=== PATIENT | male | born 1970 | race Caucasian/White ===

== ENCOUNTER 2018-08-08 21:04 | Emergency (ER) | payer SELFPAY ==
[2018-08-08 21:28] LABS: MEAN CORPUSCULAR HEMOGLOBIN 28.5 pg (28.0-34.0)
[2018-08-08 21:29] LABS: BASOPHILS % 0.4 (0.0-1.5); EOSINOPHILS % 1.3 % (0.0-6.8); MONOCYTES % 4.4 % (0.0-11.0); NEUTROPHILS # 11.5 # k/uL (1.4-7.7)
--- NOTE | 2018-08-08 21:45 | ED Physician Documentation ---
General Adult - HISTORIAN Historian: patient - HPI Stated Complaint: Not feeling well Chief Complaint: General Adult Onset: minutes Further Comments: yes (48 year old male patient presents with complaints of a 45 minute episode of chills and body aches.) - ROS CONST: chills EYES/ENT: none CVS/RESP: none GI/: none MS/SKIN/LYMPH: none NEURO/PSYCH: denies: headache, fainting, dizziness, tingling, numbness, difficulty walking, difficulty with speech, anxiety, depression, other - PAST HX Past History: none Other History: none Allergies/Adverse Reactions: Allergies Allergy/AdvReac Type Severity Reaction Status Date / Time No Known Drug Allergies Allergy Verified 05/19/15 06:47 Home Medications: Ambulatory Orders Medication Instructions Recorded Penicillin V Potassium [Pen V K] 500 mg PO QID #40 tablet 05/19/15 - SOCIAL HX Smoking History: non-smoker - FAMILY HX Family History: No - VITAL SIGNS Vital Signs: Vital Signs Temp Pulse Resp BP Pulse Ox 100.1 F H 110 H 18 143/86 95 08/08/18 21:24 08/08/18 21:24 08/08/18 21:24 08/08/18 21:24 08/08/18 21:24 - REVIEWED ASSESSMENTS Nursing Assessment Reviewed: Yes Vitals Reviewed: Yes Progress - Progress Progress: Lab, CT and xrays reviewed with patient. Patient denies any chills or body aches at present. Discussed treatment options. Will discharge with written prescription for antibiotic to start if symptoms become worse. Encouraged patient to establish PCP and have wellness check. ED Results Lab/Radiology - Lab Results Lab Results: Lab Results 08/08/18 21:16 WBC 12.90 K/ul H K/ul (4.00-12.00) RBC 5.12 M/ul M/ul (3.90-5.20) Hgb 14.6 g/dL g/dL (12.0-18.0) Hct 44.9 % % (37.0-53.0) MCV 88.0 fl fl (80.0-100.0) MCH 28.5 pg pg (28.0-34.0) MCHC 32.4 g/dL g/dL (30.0-36.0) RDW 14.3 % % (11.3-14.3) Plt Count 334 K/mm3 K/mm3 (130-400) Neut % (Auto) 89.2 % H % (39.0-79.0) Lymph % (Auto) 4.7 % L % (16.0-50.0) [place] % (Auto) 4.4 % % (0.0-11.0) Eos % (Auto) 1.3 % % (0.0-6.8) Baso % (Auto) 0.4 (0.0-1.5) Neut # (Auto) 11.5 # k/uL H # k/uL (1.4-7.7) Lymph # (Auto) 0.6 # k/uL # k/uL (0.6-4.0) Labette # (Auto) 0.6 # k/uL # k/uL (0.0-0.9) Eos # (Auto) 0.2 # k/uL # k/uL (0.0-0.6) Baso # (Auto) 0.1 # k/uL # k/uL (0.0-0.5) - Radiology Radiology Impressions: PA and lateral chest Clinical history: Cough. Findings: Examination of the chest in PA and lateral views demonstrates the lungs to be clear. Cardiovascular and mediastinal silhouettes are within normal limits. Monitor leads superimpose the chest. Impression: 1. No active disease. Electronically signed on Aug 08, 2018 10:19:28 PM LOTTERIES AGENT by: Valerio Beavers CT brain noncontrast Date of study: 08/08/2018. CLINICAL HISTORY: NUMBNESS TO FINGERTIPS TECHNIQUE: 5 mm contiguous axial images of the brain, noncontrast with sagittal and coronal multiplanar reconstructions. FINDINGS: There is no evidence of intracranial mass effect, hemorrhage, or acute infarct. The lateral ventricles are symmetrical and the 4th ventricle is midline without shift. No acute brain parenchymal changes or extra-axial fluid collections are identified. The posterior fossa contents are within normal limits. The calvarium is intact. The visualized sinuses and mastoid air cells are clear. IMPRESSION: No acute intracranial process. Electronically signed on Aug 08, 2018 10:21:03 PM LOTTERIES AGENT by: Valerio Beavers - Orders Orders: ED Orders Category Date Time Status Continuous EKG monitoring Q30M Care 08/08/18 21:16 Active Continuous Pulse Oximetry Q30M Care 08/08/18 21:[address] IV Lock 1T Care 08/08/18 21:17 Active CHEST 2VIEW [RAD] Stat Exams 08/08/18 21:[address] BRAIN W/O CONTRAST Stat Exams 08/08/18 21:39 Ordered CBC/PLATELET/DIFF Stat Lab 08/08/18 21:16 Completed CMP Stat Lab 08/08/18 21:16 Received INFLUENZA A&B Stat Lab 08/08/18 21:17 Ordered TROPONIN I (cTnI) Stat Lab 08/08/18 21:17 Received UA W/MICRO IF INDICATED Stat Lab 08/08/18 21:17 Ordered EKG WITH COMPARISON Stat Ther 08/08/18 21:16 Ordered General Adult Physical Exam - PHYSICAL EXAM GENERAL APPEARANCE: mild distress EENT: eye inspection normal, ENT inspection normal, pharynx normal, no signs of dehydration, ERWIN, no nystagmus, TM's nml RESPIRATORY: no resp distress, chest non-tender, breath sounds normal CVS: reg rate & rhythm, heart sounds normal, equal pulses, no murmur, no gallop, PMI nml, no JVD, no friction rub, 24 ABDOMEN: soft, no organomegaly, normal bowel sounds, no abdominal bruit, no distension SKIN: normal color, warm/dry, NR, INT, PAL, DR EXTREMITIES: non-tender, normal range of motion, no evidence of injury, no edema, J, 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 Increase your fluid intake juices, hot tea, non-caffeinated beverages Vitamin C may be helpful in decreasing the length of your cold. Use a humidifier in the room where you sleep. You can also sit in a steam filled bathroom 1-2 times a day. Tylenol every 4 hours 650mg -1000mg (do not exceed 4000mg in 24 hours) as needed for fever, pain and body aches. Alternate with Ibuprofen Ibuprofen 600-800mg every 6 hours as needed for fever, pain and body aches. Start the antibiotic if you symptoms become worse in the next 24-48 hours Establish a primary care doctor in the next 2-3 days and make a wellness appointment. Condition: Stable Disposition: 01 HOME, SELF-CARE Decision to Admit: NO Decision Time: 22:42
[2018-08-08 21:47] LABS: eGFR (Non-African) > 60
--- NOTE | 2018-08-08 22:22 | Diagnostic Imaging Report ---
SANDRA LIM (RN SHIFT MGR) - ER [facility] [address] [id number] Report Submission Date: Aug 08, 2018 10:19:28 PM [employer]RBAN REDEVELOPMENT SPECIALIST Patient Study Name: JESSI TREVINO Date: Aug 08, 2018 9:52:19 PM URBAN REDEVELOPMENT SPECIALIST Modality Type: DX Gender: M Description: CHEST : 72 Institution: [facility] Physician: SANDRA LIM (RN SHIFT MGR) - ER PA and lateral chest Clinical history: Cough. Findings: Examination of the chest in PA and lateral views demonstrates the lungs to be clear. Cardiovascular and mediastinal silhouettes are within normal limits. Monitor leads superimpose the chest. Impression: 1. No active disease. Electronically signed on Aug 08, 2018 10:19:28 PM URBAN REDEVELOPMENT SPECIALIST by: Valerio BRUSH
--- NOTE | 2018-08-08 22:22 | Diagnostic Imaging Report ---
SANDRA LIM (RIPSAW MATCHER) - ER [facility] [address] [facility] [address] [place], [place]. [address] Report Submission Date: Aug 08, 2018 10:21:03 PM TOUR DIRECTOR Patient Study Name: JESSI TREVINO Date: Aug 08, 2018 9:54:06 PM TOUR DIRECTOR Modality Type: CT\SR Gender: M Description: CT BRAIN W/O CONTRAST : 72 Institution: [facility] Physician: SANDRA LIM (KENJI) - ER CT brain noncontrast Date of study: 08/08/2018. CLINICAL HISTORY: NUMBNESS TO FINGERTIPS TECHNIQUE: 5 mm contiguous axial images of the brain, noncontrast with sagittal and coronal multiplanar reconstructions. FINDINGS: There is no evidence of intracranial mass effect, hemorrhage, or acute infarct. The lateral ventricles are symmetrical and the 4th ventricle is midline without shift. No acute brain parenchymal changes or extra-axial fluid collections are identified. The posterior fossa contents are within normal limits. The calvarium is intact. The visualized sinuses and mastoid air cells are clear. IMPRESSION: No acute intracranial process. Electronically signed on Aug 08, 2018 10:21:03 PM TOUR DIRECTOR by: Valerio BRUSH
[2018-08-08] MEDS ORDERED: KETOROLAC TROMETHAMINE 30 MG/1ML VIAL IVP ONE (22:32)
[2018-08-08] MEDS ORDERED: ACETAMINOPHEN 500 MG TABLET PO ONE (22:32)
[2018-08-08 23:00] VITALS: BP 144/75
== END 2018-08-08 22:57 | disposition home or self-care (01) ==
LOC: ED 21:04
DX: D72.829 Elevated white blood cell count, unspecified (principal); R50.9 Fever, unspecified
CPT/HCPCS: 70450; 71046; 80053; 84484; 85025; 87400; 93005; J1885; 99283; S1016